=== PATIENT | female | born 1985 | race Caucasian/White ===

== ENCOUNTER 2017-04-19 18:52 | Emergency (ER) | payer MEDICAID ==
[~2017-04-19] VITALS: Ht 152.4 cm; Wt 87.1 kg
--- OUTSIDE RECORDS SUMMARY | 2017-04-19 18:57 | XMS REPORT ---
Author Author Lasha Bee Organization Unknown Address [address] [place], [place] [id number] Phone Care Team Providers Care Slots Manager Name Role Phone Alyssa Bee PP Unavailable Reason for Referral No Reason for Referral was given. History of Present Illness No HPI available. Problems * Normal Routine History And Physical Adult (V70.0); (Active) * Asthma (493.90); (Active) * Gynecologic Services Contraceptive Management (V25.9); (Active) Medication * Advair Diskus 100-50 MCG/DOSE Inhalation Aerosol Powder Breath Activated; INHALE ONE PUFF BY MOUTH TWICE A DAY; Start Date: 07/09/2010; End Date: 1899 (Active) * ProAir HFA 108 (90 Base) MCG/ACT Inhalation Aerosol Solution; INHALE TWO PUFFS EVERY 4 TO 6 HOURS NEEDED; Start Date: 05/13/2011; End Date: 1899 (Active) * Slow Fe 142 (45 Fe) MG Oral Tablet Extended Release; Start Date: 03/31/2013 ( Active) * Plus DHA 7-0.4-100 MG Oral Tablet; Start Date: 08/24/2012; End Date: 03/31/2013 (Complete) Allergies and Adverse Reactions * No Known Drug Allergies (Active) Past Medical History * History of Supervision Of Normal First (V22.0); (Resolved) Procedures Procedure Procedure Date Date Completed Status Obstetrical Surgery 09/09/2010 - Active Obstetrical Surgery 02/15/2013 - Active Immunization * Tdap (Adacel) (Lot #: [id number]) - Administered on: 12/29/2012 Vital Signs Date Description Test Result 31 Mar 2013 11:06 AM recorded by: Griselda Loving Weight 158 lb Body Mass Index Calculated 31.02 Body Surface Area Calculated 1.69 BP Systolic 110 mm[Hg] BP Diastolic 62 mm[Hg] Treatment Plan * PAP SMEAR 9600 03/04/2010 Routine * PAP SMEAR 9600 11/12/2010 Routine * HIV 1,2 ASSAY 3400 08/24/2012 Routine * OBSTETRIC PANEL 2130 08/24/2012 Routine * Urinalysis, Reflex to Microscopic or Culture PRN 8005 08/24/2012 Routine * Urine Culture PRN 8000 08/24/2012 Routine * CHLAMYDIA & GONORRHOEAE DNA PROBES 5610 08/24/2012 Routine * BETA HCG 3500 03/31/2013 Routine Advance Directives * No Advance Directives available. Encounters * Appointment 03/31/2013 * POSTPART , Provider: Tin Gooden, Status: Maximo , Time: 9:45 AM 08/2013 * GYNNEW , Provider: Tin Gooden, Status: Koby , Time: 1:45 PM * YEARLY , Provider: Rohit Colby, Status: Koby , Time: 1:45 PM 2013
--- OUTSIDE RECORDS SUMMARY | 2017-04-19 18:57 | XMS REPORT | Summary of Care ---
Author Author Lasha Bee M.D. Organization Unknown Address Unknown Phone Unavailable Care Team Providers Care Manager Statistical Programming Name Role Phone Alyssa Bee M.D. Unavailable Unavailable Jhonny Arroyo M.D. Unavailable Unavailable No Assigned PCP-Pt Confirmed Unavailable Unavailable Unavailable Unavailable Functional Status Name Dates Details Functional status health issues are not documented Status: Name Dates Details Cognitive status health issues are not documented Status: Problems Name Dates Details Asthma (493.90, J45.909) Status: Active Chronic bilateral low back pain with bilateral sciatica (724.2, M54.42) Status: Active Unprotected sex (V69.2, Z72.51) Status: Active Lumbar paraspinal muscle spasm (724.8, M62.830) Status: Active Chronic low back pain (724.2, M54.5) Status: Active Weight gain, abnormal (783.1, R63.5) Status: Active Encounter for routine gynecological examination (V72.31, Z01.419) Status: Active Amenorrhea (626.0, N91.2) Status: Active Uterine cramping (625.8, N94.89) Status: Active Screen for STD (sexually transmitted disease) (V74.5, Z11.3) Status: Active Abnormal uterine bleeding unrelated to menstrual cycle (626.9, N93.9) Status: Active Medications Name Dates Details Dulera 200-5 MCG/ACT Inhalation Aerosol INHALE 2 PUFFS TWICE DAILY. Quantity: 1 * Start 08-Oct-2016 Active 13 GM Inhaler ProAir RespiClick 108 (90 Base) MCG/ACT Inhalation Aerosol Powder Breath Activated * Refills: 0 * Start 15-Dec-2016 Active ZyrTEC Allergy 10 MG Oral Capsule * Refills: 0 Jhonny Arroyo M.D. * Start 24-Dec-2016 Active Naproxen 500 MG Oral Tablet TAKE 1 TABLET EVERY 12 HOURS DAILY. * Quantity: 60 Refills: 2 Jhonny Arroyo M.D. * Start 24-Dec-2016 Active Baclofen 10 MG Oral Tablet TAKE 1 TABLET 4 TIMES DAILY. * Quantity: 40 Refills: 2 Jhonny Arroyo M.D. * Start 24-Dec-2016 Active Dramamine 50 MG Oral Tablet Chewable * Refills: 0 Lasha Bee M.D. * Start 20-Jan-2017 Active PNV Plus Multivitamin 27-1 MG Oral Tablet take one tablet by mouth every day * Quantity: 30 Refills: 11 Rohit Sands, Lasha Shah * Start 25-Mar-2017 Active Allergies and Adverse Reactions Name Dates Details No Known Drug Allergies (Allergy) Status: Active Past Medical History Name Dates Details History of Possible (V72.40, Z32.00) Status: Resolved History of Supervision of normal first (V22.0, Z34.00) Status: Resolved Procedures Procedure Dates Details History of Obstetrical Surgery Completed: 09-Sep-2010 History of Obstetrical Surgery Completed: 15-Feb-2013 Chlamydia/GC TMA Assay [id number] Ordered: 25-Mar-2017 ULTRASOUND SALINE SONO Ordered: 25-Mar-2017 Immunization Name Dates Details Tdap (Adacel) Lot #: [id number] on: 29-Dec-2012 Family History Name Dates Details Family history of asthma (V17.5, Z82.5) Status: Active Family history of myocardial infarction (V17.3, Z82.49) Status: Active Name Dates Details Family history of myocardial infarction (V17.3, Z82.49) Status: Active Name Dates Details Family history of myocardial infarction (V17.3, Z82.49) Status: Active Family history of cardiac disorder (V17.49, Z82.49) Status: Active Name Dates Details Family history of myocardial infarction (V17.3, Z82.49) Status: Active Social History Name Dates Details Unprotected sex (V69.2, Z72.51) Status: Active Name Dates Details Never smoker Vital Signs Date Test Result Details 25-Mar-2017 11:02 BP Systolic 102 mm[Hg] Status: Comments: Location: ; Position: BP Diastolic 60 mm[Hg] Status: Comments: Location: ; Position: Weight 196 lb Status: Body Mass Index Calculated 37.34 kg/m2 Status: Body Surface Area Calculated 1.87 m2 Status: Results Date Description Value Details Results not documented Plan of Care Name Dates Details Planned Observations Planned Goals not documented Planned Encounters Appointment; Provider: Lasha Bee M.D. On 05-Aug-2017 14:00 Interventions Provided Labs/Procedures/Imaging* Chlamydia/GC TMA Assay [id number]; To be Done: 25 Mar 2017 * ULTRASOUND SALINE SONO; To be Done: 25 Mar 2017 Instructions Name Dates Details Instructions not documented Encounters Appointment; Lasha Bee M.D. Encounter Diagnosis: Problem not documented On 02-Feb-2017 14:00 Appointment; Lasha Bee M.D. Encounter Diagnosis: Problem not documented On 20-Jan-2017 14:15 Appointment; Jovany Washington M.D. Encounter Diagnosis: Problem not documented On 14-Jan-2017 10:30 Appointment; Latha Harvey APRN Encounter Diagnosis: Problem not documented On 07-Jan-2017 15:25 Appointment; Jhonny Arroyo M.D. Encounter Diagnosis: Problem not documented On 24-Dec-2016 13:45 Appointment; Leland Steve D.O. Encounter Diagnosis: Problem not documented On 15-Dec-2016 11:05 Appointment; Bryan Delgado M.D. Encounter Diagnosis: Problem not documented On 15-Dec-2016 09:45 Appointment; Jovany Washington M.D. Encounter Diagnosis: Problem not documented On 10-Dec-2016 11:15 Appointment; Karen Kovacs A.P.R.N. Encounter Diagnosis: Problem not documented On 08-Oct-2016 15:30
--- OUTSIDE RECORDS SUMMARY | 2017-04-19 18:58 | XMS REPORT ---
Author Zhane Tubbs [employer] Address Unknown Phone Unavailable Care Team Providers Care Chief Wheelage Clerk Name Role Phone Zhane Sanders Unavailable Allergies, Adverse Reactions, Alerts Substance Reaction Event Type N.K.D.A. Info Not Available Non Drug Allergy Problems Problem Type Condition Code Onset Dates Condition Status Assessment Encounter for routine gynecological examination Z01.419 Active Problem examination or test, negative result V72.41 Active Problem Presence of subdermal contraceptive device V45.52 Active Problem Insomnia G47.00 Active Problem Exacerbation of asthma J45.901 Active Problem Obesity, morbid, BMI 40.0-49.9 E66.01 Active Problem Encounter for vaccination Z23 Active Problem Unspecified disorder of menstruation and other abnormal bleeding from female genital tract 626.9 Active Problem Severe persistent asthma J45.50 Active Problem Lumbar back pain M54.5 Active Assessment Obesity, morbid, BMI 40.0-49.9 E66.01 Active Assessment Screening for HPV (human papillomavirus) Z11.51 Active Assessment Papanicolaou smear for cervical cancer screening Z12.4 Active Medications Medication Code System Code Instructions Start Date End Date Status Dosage Dulera [facility] [address]-03 100-5 MCG/ACT Inhalation Twice a day 2 puffs Zantac 75 [facility] [address]-43 75 MG Orally not defined Sudafed 12 Hour [facility] [address]-13 120 MG Orally every 12 hrs 1 tablet as needed Cefdinir [facility] [address]-19 300 MG Orally every 12 hrs Oct 13, 2016Oct 1 capsule ProAir HFA [facility] [address]-55 108 (90 Base) MCG/ACT Inhalation every 4 hrs 2 puffs as needed Procedures Procedure Coding System Code Date EST PREV AGE 18-39 CPT-4 59289 Oct 22, 2016 Vital Signs Date/Time: Oct 22, 2016 BMI 47.69 Index Weight 173.0 lbs Height 50.5 in Blood Pressure Diastolic 70 mm Hg Blood Pressure Systolic 110 mm Hg Cardiac Monitoring Heart Rate 88 /min Temperature 97.7 F Respiratory Rate 18 /min Results No Known Results Summary Purpose eClinicalWorks Submission
--- OUTSIDE RECORDS SUMMARY | 2017-04-19 18:58 | XMS REPORT ---
Author Margie Mattson Organization [employer] Address Unknown Phone Unavailable Care Team Providers Care Medical Assisting Instructor Name Role Phone Margie Baird CP Unavailable Allergies No Known Allergies Problems No Known Problems Medications No Known Medications Results No Known Results Summary Purpose eClinicalWorks Submission
--- OUTSIDE RECORDS SUMMARY | 2017-04-19 18:58 | XMS REPORT | Summary of Care ---
Author Author Lasha Bee M.D. Organization Unknown Address Unknown Phone Unavailable Care Team Providers Care Surgical Services Asst Name Role Phone Alyssa Bee M.D. Unavailable Unavailable Jhonny Arroyo M.D. Unavailable Unavailable No Assigned PCP-Pt Confirmed Unavailable Unavailable Unavailable Unavailable Functional Status Name Dates Details Functional status health issues are not documented Status: Name Dates Details Cognitive status health issues are not documented Status: Problems Name Dates Details Encounter for routine gynecological examination (V72.31, Z01.419) Status: Active Chronic low back pain (724.2, M54.5) Status: Active Amenorrhea (626.0, N91.2) Status: Active Lumbar paraspinal muscle spasm (724.8, M62.830) Status: Active Unprotected sex (V69.2, Z72.51) Status: Active Weight gain, abnormal (783.1, R63.5) Status: Active Asthma (493.90, J45.909) Status: Active Chronic bilateral low back pain with bilateral sciatica (724.2, M54.42) Status: Active Medications Name Dates Details Dulera [...] TIMES DAILY. * Quantity: 40 Refills: 2 Cruz Sands, Jhonny * Start 24-Dec-2016 Active Dramamine 50 MG Oral Tablet Chewable * Refills: 0 Lasha Bee M.D. * Start 20-Jan-2017 Active Allergies and Adverse Reactions Name Dates Details No Known Drug Allergies (Allergy) Status: Active Past Medical History Name Dates Details History of Possible (V72.40, Z32.00) Status: Resolved History of Supervision of normal first (V22.0, Z34.00) Status: Resolved Procedures Procedure Dates Details History of Obstetrical Surgery Completed: 09-Sep-2010 History of Obstetrical Surgery Completed: 15-Feb-2013 Procedures not documented Immunization Name Dates Details Tdap (Adacel) Lot #: [id number] on: 29-Dec-2012 Family History Name Dates Details Family history of asthma (V17.5, Z82.5) Status: Active Family history of myocardial infarction (V17.3, Z82.49) Status: Active Name Dates Details Family history of myocardial infarction (V17.3, Z82.49) Status: Active Name Dates Details Family history of cardiac disorder (V17.49, Z82.49) Status: Active Family history of myocardial infarction (V17.3, Z82.49) Status: Active Name Dates Details Family history of myocardial infarction (V17.3, Z82.49) Status: Active Social History Name Dates Details Unprotected sex (V69.2, Z72.51) Status: Active Name Dates Details Never smoker Vital Signs Date Test Result Details 20-Jan-2017 14:19 BP Systolic 102 mm[Hg] Status: Comments: Location: ; Position: BP Diastolic 74 mm[Hg] Status: Comments: Location: ; Position: Height 60.75 in Status: Weight 188 lb Status: Body Mass Index Calculated 35.82 kg/m2 Status: Body Surface Area Calculated 1.83 m2 Status: 07-Jan-2017 15:29 BP Systolic 118 mm[Hg] Status: Comments: Location: ; Position: BP Diastolic 78 mm[Hg] Status: Comments: Location: ; Position: Temperature 98.2 f Status: Heart Rate 87 /min Status: Physical Findings 98 Status: Comments: O2 Saturation Results Date Description Value Details 20-Jan-2017 16:17 THYROID STIM. HORMONE 3602 THYROID STIM. HORMONE 1.556 uIU/mL Range: 0.550-4.780 Comments: No established reference ranges for infants and children <2 years of age----- 26-Jan-2017 17:30 SERUM TEST 8020 SERUM TEST Negative Range: Negative Comments: Internal Control: Acceptable----- Plan of Care Name Dates Details Planned Observations Planned Goals not documented Planned Encounters Appointment; Provider: Rafael Coe On 17-Feb-2017 16:00 Appointment; Provider: Jhonny Arroyo M.D. On 10-Feb-2017 13:30 Instructions Name Dates Details Instructions not documented [...]
--- OUTSIDE RECORDS SUMMARY | 2017-04-19 18:58 | XMS REPORT ---
Author Author Leland Baird Organization [facility] Address [address] [place], [place] [address] Care Team Providers Care Wet Machine Cutter Name Role Phone OliManuelLeland Unavailable [phone] PROBLEMS Type Condition ICD9-CM Code SUO13-AR Code Onset Dates Condition Status SNOMED Code Problem Presence of subdermal contraceptive device V45.52 Active 469123111 Problem Unspecified disorder of menstruation and other abnormal bleeding from female genital tract 626.9 Active 220364721 Problem examination or test, negative result V72.41 Active 121561916 Assessment Amenorrhea N91.2 Oct, Active 84545382 Problem Obesity, morbid, BMI 40.0-49.9 E66.01 Active 652814917 Problem Insomnia G47.00 Active 193065558 Problem Lumbar back pain M54.5 Active 675269415 Problem Encounter for vaccination Z23 Active 697246349 Problem Exacerbation of asthma J45.901 Active 098207110 Problem Severe persistent asthma J45.50 Active 838501587 ALLERGIES Unknown Allergies SOCIAL HISTORY No smoking Hx information available PLAN OF CARE VITAL SIGNS MEDICATIONS Medication Instructions Dosage Frequency Start Date End Date Duration Status Sudafed 12 Hour 120 MG Orally every 12 hrs 1 tablet as needed 12h Active Zantac 75 75 MG Active ProAir HFA 108 (90 Base) MCG/ACT Inhalation every 4 hrs 2 puffs as needed 4h Active Dulera 100-5 MCG/ACT Inhalation Twice a day 2 puffs 12h Active RESULTS Name Result Date Reference Range Screen, Serum 2016-11-07 Screen, Serum Negative Venipuncture 2016-11-07 PROCEDURES Procedure Date Ordered Related Diagnosis Body Site CHORIONIC GONADOTROPIN ASSAY.AMS Nov 07, 2016 ROUTINE VENIPUNCTURE Nov 07, 2016 IMMUNIZATIONS No Known Immunizations
--- OUTSIDE RECORDS SUMMARY | 2017-04-19 18:58 | XMS REPORT | Summary of Care ---
Author Author Jhonny Arroyo M.D. Organization Unknown Address [address] [place] [address] Phone Unavailable Care Team Providers Care Land Examiner Name Role Phone Jhonny Arroyo M.D. Unavailable Unavailable Bryan Delgado Unavailable Unavailable Unavailable Unavailable Functional Status Name Dates Details Functional status health issues are not documented Status: Name Dates Details Cognitive status health issues are not documented Status: Problems Name Dates Details Contraception management (V25.9, Z30.9) Status: Active Asthma (493.90, J45.909) Status: Active Chronic bilateral low back pain with bilateral sciatica (724.2, M54.42) Status: Active Unprotected sex (V69.2, Z72.51) Status: Active Possible (V72.40, Z32.00) Status: Active Lumbar paraspinal muscle spasm (724.8, M62.830) Status: Active Chronic low back pain (724.2, M54.5) Status: Active Medications Name Dates Details Dulera 200-5 MCG/ACT Inhalation Aerosol INHALE 2 PUFFS TWICE DAILY. Quantity: 1 * Start 08-Oct-2016 Active 13 GM Inhaler ProAir RespiClick 108 (90 Base) MCG/ACT Inhalation Aerosol Powder Breath Activated * Refills: 0 * Start 15-Dec-2016 Active Soma 350 MG Oral Tablet * Refills: 0 * Start 24-Dec-2016 Active TraMADol HCl - 50 MG Oral Tablet * Refills: 0 * Start 24-Dec-2016 Active ZyrTEC Allergy 10 MG Oral Capsule [...] Jhonny Arroyo M.D. * Start 24-Dec-2016 Active Allergies and Adverse Reactions Name Dates Details No Known Drug Allergies (Allergy) Status: Active Past Medical History Name Dates Details Contraception management (V25.9, Z30.9) Status: Active History of Supervision of normal first (V22.0, Z34.00) Status: Resolved Procedures Procedure Dates Details History of Obstetrical Surgery Completed: 09-Sep-2010 History of Obstetrical Surgery Completed: 15-Feb-2013 Procedures not documented Immunization Name Dates Details Tdap (Adacel) Lot #: [id number] on: 29-Dec-2012 Family History Name Dates Details [...] smoker Vital Signs Date Test Result Details 24-Dec-2016 14:06 BP Systolic 130 mm[Hg] Status: Comments: Location: ; Position: BP Diastolic 88 mm[Hg] Status: Comments: Location: ; Position: Heart Rate 94 /min Status: Comments: Location: ; Weight 187 lb Status: Body Mass Index Calculated 34.76 kg/m2 Status: Body Surface Area Calculated 1.85 m2 Status: 15-Dec-2016 11:13 BP Systolic 143 mm[Hg] Status: Comments: Location: LUE; Position: Sitting BP Diastolic 92 mm[Hg] Status: Comments: Location: LUE; Position: Sitting Temperature 98.4 f Status: Comments: Method: Heart Rate 84 /min Status: Comments: Location: ; Physical Findings 16 Status: Comments: Respiration Physical Findings 97 Status: Comments: O2 Saturation 15-Dec-2016 09:54 BP Systolic 122 mm[Hg] Status: Comments: Location: ; Position: BP Diastolic 86 mm[Hg] Status: Comments: Location: ; Position: Heart Rate 84 /min Status: Comments: Location: ; Height 61.5 in Status: Weight 185 lb Status: Body Mass Index Calculated 34.39 kg/m2 Status: Body Surface Area Calculated 1.84 m2 Status: Results Date Description Value Details 15-Dec-2016 13:15 SERUM TEST 8020 SERUM TEST Negative Range: Negative Comments: Internal Control: Acceptable----- 14:11 XRay SPINE-LUMBAR Comments: Exam Date: 12/15/2016 13:29Dictation Date : 12/15/2016 14:11 X SPINE LUMBAR W/ FLEX & EXT Plan of Care Name Dates Details Planned Observations Planned Goals not documented Planned Encounters Appointment; Provider: Jhonny Arroyo M.D. On 10-Feb-2017 13:30 Appointment; Provider: Sixto Pittman D.P.T. On 31-Dec-2016 13:30 Interventions Provided Medication Changes* Baclofen 10 MG Oral Tablet - Start * Naproxen 500 MG Oral Tablet - Start Instructions Name Dates Details Instructions not documented Encounters Appointment; Leland Steve D.O. Encounter Diagnosis: Problem not documented On 15-Dec-2016 11:05 Appointment; Bryan Delgado M.D. Encounter Diagnosis: Problem not documented On 15-Dec-2016 09:45 Appointment; Jovany Washington M.D. Encounter Diagnosis: Problem not documented On 10-Dec-2016 11:15 Appointment; Karen Kovacs A.P.R.N. Encounter Diagnosis: Problem not documented On 08-Oct-2016 15:30
--- OUTSIDE RECORDS SUMMARY | 2017-04-19 18:58 | XMS REPORT ---
Author Author Margie Baird Organization [employer] Address Unknown Phone Unavailable Care Team Providers Care Manager Beauty Name Role Phone Margie Baird CP Unavailable Allergies No Known Allergies Problems No Known Problems Medications No Known Medications Results No Known Results Summary Purpose eClinicalWorks Submission
--- OUTSIDE RECORDS SUMMARY | 2017-04-19 18:58 | XMS REPORT ---
Author Leland Mattson [facility] [employer] Address Unknown Phone Unavailable Care Team Providers Care Department Supervisor Name Role Phone Leland Baird CP Unavailable Allergies No Known Allergies Problems Problem Type Condition Code Onset Dates Condition Status Problem examination or test, negative result V72.41 Active Problem Presence of subdermal contraceptive device V45.52 Active Problem Unspecified disorder of menstruation and other abnormal bleeding from female genital tract 626.9 Active Medications No Known Medications Results No Known Results Summary Purpose eClinicalWorks Submission
--- OUTSIDE RECORDS SUMMARY | 2017-04-19 18:58 | XMS REPORT ---
Author Author Zhane Sanders [facility] [employer] Address Unknown Phone Unavailable Care Team Providers Care Tech Ed/Woodshop Teacher Name Role Phone Zhane Sanders CP Unavailable Allergies No Known Allergies Problems Problem Type Condition Code Onset Dates Condition Status Assessment Papanicolaou smear for cervical cancer screening Z12.4 Active Problem examination or test, negative result [...] Active Problem Lumbar back pain M54.5 Active Medications Medication Code System Code Instructions Start Date End Date Status Dosage Cefdinir [facility] [address]-25 300 MG Orally every 12 hrs Oct 13, 2016Oct 1 capsule Zantac 75 [facility] [address]-52 75 MG Orally not defined Sudafed 12 Hour [facility] [address]-77 120 MG Orally every 12 hrs 1 tablet as needed Dulera [facility] [address]-69 100-5 MCG/ACT Inhalation Twice a day 2 puffs ProAir HFA [facility] [address]-16 108 (90 Base) MCG/ACT Inhalation every 4 hrs 2 puffs as needed Results Name Result Date Reference Range Unit Abnormality Flag PAP (LBP) w/ Reflex High Risk HPV if results ASCUS ----PAP (LBP) w/ Reflex High Risk HPV if results ASCUS Patient: MAYFIELD HAYLEE JENKINS : [id number] Summary Purpose eClinicalWorks Submission
--- OUTSIDE RECORDS SUMMARY | 2017-04-19 18:58 | XMS REPORT | Summary of Care ---
Author Leland Briggs D.O. Organization Unknown Address [address] [place], [place] [address] Phone Unavailable Care Team Providers Care Metal Sprayer Protective Coating Name Role Phone Orville Steve D.O. Unavailable Unavailable Bryan Delgado Unavailable Unavailable Unavailable [...] paraspinal muscle spasm (724.8, M62.830) Status: Active Medications Name Dates Details Dulera 200-5 MCG/ACT Inhalation Aerosol INHALE 2 PUFFS TWICE DAILY. Quantity: 1 * Start 08-Oct-2016 Active 13 GM Inhaler ProAir RespiClick 108 (90 Base) MCG/ACT Inhalation Aerosol Powder Breath Activated * Refills: 0 * Start 15-Dec-2016 Active TraMADol HCl - 50 MG Oral Tablet TAKE 1 TABLET Every 4 hours prn back pain * Quantity: 50 Refills: 0 Leland Steve D.O. Start 15-Dec-2016 End 24-Dec-2016 Active Cyclobenzaprine HCl - 5 MG Oral Tablet TAKE 1 TABLET 3 times daily PRN low back pain and muscle * Quantity: 30 Refills: 0 Leland Steve D.O. Start 15-Dec-2016 End 25-Dec-2016 Active Allergies and Adverse Reactions Name Dates Details No Known Drug Allergies (Allergy) Status: Active Past Medical History Name Dates Details Contraception management (V25.9, Z30.9) Status: Active History of Supervision of normal first (V22.0, Z34.00) Status: Resolved Procedures Procedure Dates Details History of Obstetrical Surgery Completed: 09-Sep-2010 History of Obstetrical Surgery Completed: 15-Feb-2013 MRI LUMBAR SPINE Ordered: 15-Dec-2016 Immunization Name Dates Details Tdap (Adacel) Lot #: [id number] on: 29-Dec-2012 Social History Name Dates Details Unprotected sex (V69.2, Z72.51) Status: Active Name Dates Details Never smoker Vital Signs Date Test Result Details 15-Dec-2016 11:13 BP Systolic 143 mm[Hg] Status: Comments: Location: ; Position: BP Diastolic 92 mm[Hg] Status: Comments: Location: ; Position: Temperature 98.4 f Status: Heart Rate 84 /min Status: Comments: Location: ; Physical Findings 16 Status: Comments: Respiration Physical Findings 97 Status: Comments: O2 Saturation 15-Dec-2016 09:54 BP Systolic 122 mm[Hg] Status: Comments: Location: LUE; Position: Sitting BP Diastolic 86 mm[Hg] Status: Comments: Location: LUE; Position: Sitting Heart Rate 84 /min Status: Comments: Location: [...] Goals not documented Planned Encounters Appointment; Provider: Karen Kovacs A.P.R.N. On 20-Jan-2017 15:00 Interventions Provided Medication Changes* Cyclobenzaprine HCl - 5 MG Oral Tablet - Start * TraMADol HCl - 50 MG Oral Tablet - Start Labs/Procedures/Imaging* SERUM TEST 8020; Done: Dec 15 2016 12:51PM * XRay SPINE-LUMBAR; Done: Dec 15 2016 2:11PM Instructions Name Dates Details Instructions not documented Encounters Appointment; Byran Delgado M.D. Encounter Diagnosis: Problem not documented On 15-Dec-2016 09:45 Appointment; Jovany Washington M.D. Encounter Diagnosis: Problem not documented On 10-Dec-2016 11:15 Appointment; Karen Kovacs A.P.R.N. Encounter Diagnosis: Problem not documented On 08-Oct-2016 15:30
--- OUTSIDE RECORDS SUMMARY | 2017-04-19 18:58 | XMS REPORT ---
Author Margie Mattson Organization [employer] Address Unknown Phone Unavailable Care Team Providers Care Medical Technologist Prn Name Role Phone Margie Baird CP Unavailable Allergies No Known Allergies Problems No Known Problems Medications No Known Medications Results No Known Results Summary Purpose eClinicalWorks Submission
--- OUTSIDE RECORDS SUMMARY | 2017-04-19 18:58 | XMS REPORT ---
Author Author Leland Baird [facility] Address [address] [place], [place] [address] Care Team Providers Care Java Web Application Developer Name Role Phone Leland Baird Unavailable [phone] PROBLEMS Type Condition ICD9-CM Code [id number] Code Onset Dates Condition Status SNOMED Code Problem Presence of subdermal contraceptive device V45.52 Active 452696661 Problem Unspecified disorder of menstruation and other abnormal bleeding from female genital tract 626.9 Active 665879041 Problem examination or test, negative result V72.41 Active 287876193 Problem Obesity, morbid, BMI 40.0-49.9 E66.01 Active 063644899 Problem Insomnia G47.00 Active 650028420 Problem Lumbar back pain M54.5 Active 374103178 Problem Encounter for vaccination Z23 Active 078237677 Problem Exacerbation of asthma J45.901 Active 496274440 Problem Severe persistent asthma J45.50 Active 022507867 ALLERGIES Unknown Allergies SOCIAL HISTORY No smoking Hx information available PLAN OF CARE VITAL SIGNS MEDICATIONS Unknown Medications RESULTS No Results PROCEDURES No Known procedures IMMUNIZATIONS No Known Immunizations
--- OUTSIDE RECORDS SUMMARY | 2017-04-19 18:58 | XMS REPORT | Summary of Care ---
Author Author Lasha Bee M.D. Organization Unknown Address Unknown Phone Unavailable Care Team Providers Care Private Investigator Name Role Phone Alyssa Bee M.D. Unavailable [...] routine gynecological examination (V72.31, Z01.419) Status: Active Medications Name Dates Details Dulera [...] 09-Sep-2010 History of Obstetrical Surgery Completed: 15-Feb-2013 THYROID STIM. HORMONE 3602 Ordered: 20-Jan-2017 Immunization Name Dates Details Tdap (Adacel) Lot #: [id number] on: 29-Dec-2012 Family History Name Dates Details [...] Location: ; Position: Temperature 98.2 f Status: Comments: Method: Heart Rate 87 /min Status: Comments: Location: ; Physical Findings 98 Status: Comments: O2 Saturation 24-Dec-2016 14:06 BP Systolic 130 mm[Hg] Status: Comments: Location: ; Position: BP Diastolic 88 mm[Hg] Status: Comments: Location: ; Position: Heart Rate 94 /min Status: Weight 187 lb Status: Body Mass Index Calculated 34.76 kg/m2 Status: Body Surface Area Calculated 1.85 m2 Status: Results Date Description Value Details Results not documented Plan of Care Name Dates Details Planned Observations Planned Goals not documented Planned Encounters Appointment; Provider: Rafael Coe On 17-Feb-2017 16:00 Appointment; Provider: Jhonny Arroyo M.D. On 10-Feb-2017 13:30 Interventions Provided Labs/Procedures/Imaging* THYROID STIM. HORMONE 3602; To be Done: 20 Jan 2017 Instructions Name Dates Details Instructions not documented Encounters Appointment; Jovany Washington M.D. Encounter Diagnosis: Problem [...]
--- OUTSIDE RECORDS SUMMARY | 2017-04-19 18:58 | XMS REPORT ---
Author Author Karen Ballard Organization eClinicalWorks Address Unknown Phone Unavailable Care Team Providers Care Drum Tester Name Role Phone Karen Ballard CP Unavailable Allergies No Known Allergies Problems No Known Problems Medications No Known Medications Results No Known Results Summary Purpose eClinicalWorks Submission
--- OUTSIDE RECORDS SUMMARY | 2017-04-19 18:58 | XMS REPORT ---
Author Author Leland Baird [facility] eClinicalWorks Address Unknown Phone Unavailable Care Team Providers Care Deputy Brand Inspector Name Role Phone Leland Baird CP Unavailable Allergies No Known Allergies Problems Problem Type Condition Code Onset Dates Condition Status Problem Presence of subdermal contraceptive device V45.52 Active Problem Exacerbation of asthma J45.901 Active Problem Severe persistent asthma J45.50 Active Problem Insomnia G47.00 Active Problem Unspecified disorder of menstruation and other abnormal bleeding from female genital tract 626.9 Active Problem examination or test, negative result V72.41 Active Problem Lumbar back pain M54.5 Active Problem Encounter for vaccination Z23 Active Medications Medication Code System Code Instructions Start Date End Date Status Dosage Cefdinir [facility] [address]-57 300 MG Orally every 12 hrs Oct 13, 2016Oct 1 capsule Results No Known Results Summary Purpose eClinicalWorks Submission
--- OUTSIDE RECORDS SUMMARY | 2017-04-19 18:58 | XMS REPORT ---
Author Author Karen Ballard Organization [employer] Address Unknown Phone Unavailable Care Team Providers Care Grapple Yarder Operator Name Role Phone Karen Ballard CP Unavailable Allergies No Known Allergies Problems No Known Problems Medications No Known Medications Results No Known Results Summary Purpose eClinicalWorks Submission
--- OUTSIDE RECORDS SUMMARY | 2017-04-19 18:58 | XMS REPORT ---
Author Author Leland Baird [facility] eClinicalWorks Address Unknown Phone Unavailable Care Team Providers Care Ep Technologist Name Role Phone Leland Baird CP Unavailable Allergies No Known Allergies Problems Problem Type Condition Code Onset Dates Condition Status Problem Lumbar back pain M54.5 Active Problem Encounter for vaccination Z23 Active Problem Severe persistent asthma J45.50 Active Problem Presence of subdermal contraceptive device V45.52 Active Problem Unspecified disorder of menstruation and other abnormal bleeding from female genital tract 626.9 Active Problem examination or test, negative result V72.41 Active Medications Medication Code System Code Instructions Start Date End Date Status Dosage Methocarbamol [facility] [address]-15 500 MG Orally Four times a day Nov 13, 2015 Nov 23, 2015 1 tablet as needed Results No Known Results Summary Purpose eClinicalWorks Submission
--- OUTSIDE RECORDS SUMMARY | 2017-04-19 18:58 | XMS REPORT | Summary of Care ---
Author Author Lasha Bee M.D. Organization Unknown Address Unknown Phone Unavailable Care Team Providers Care Media Relations Associate Name Role Phone Alyssa Bee M.D. Unavailable [...] Status: Active Amenorrhea (626.0, N91.2) Status: Active Medications Name Dates Details Dulera [...] HOURS DAILY. * Quantity: 60 Refills: 2 Cruz Sands, Jhonny * Start 24-Dec-2016 Active Baclofen 10 MG [...] 09-Sep-2010 History of Obstetrical Surgery Completed: 15-Feb-2013 SERUM TEST 8020 Ordered: 26-Jan-2017 Immunization Name Dates Details Tdap (Adacel) Lot #: [id number] on: 29-Dec-2012 Family History Name Dates Details [...] infants and children <2 years of age----- Plan of Care Name Dates Details Planned Observations Planned Goals not documented Planned Encounters Appointment; Provider: Rafael Coe On 17-Feb-2017 16:00 Appointment; Provider: Jhonny Arroyo M.D. On 10-Feb-2017 13:30 Interventions Provided Labs/Procedures/Imaging* SERUM TEST 8020; To be Done: 26 Jan 2017 Instructions Name Dates Details Instructions [...]
--- OUTSIDE RECORDS SUMMARY | 2017-04-19 18:58 | XMS REPORT | Summary of Care ---
Author Author Karen Kovacs APRN Organization Unknown Address [address] [place], [place] [address] Phone Unavailable Care Team Providers Care Hiv Prevention Specialist Name Role Phone Fermín KUMARINKaren Unavailable Unavailable Yordan Castle M.D. Unavailable Unavailable No Assigned PCP-Pt Confirmed Unavailable Unavailable Unavailable Unavailable Functional Status Name Dates Details Functional status health issues are not documented Status: Name Dates Details Cognitive status health issues are not documented Status: Problems Name Dates Details Control Method - Subdermal Contraceptive Implant (V45.52) Status: Auto Complete Contraception management (V25.9, Z30.9) Status: Active Asthma (493.90, J45.909) Status: Active Medications Name Dates Details Nexplanon 68 MG Subcutaneous Implant USE DIRECTED. Quantity: 1 Tin Sands, Berkley A * Start 05-Apr-2013 Active Dulera 200-5 MCG/ACT Inhalation Aerosol INHALE 2 PUFFS TWICE DAILY. * Quantity: 1 Refills: 6 * Start 08-Oct-2016 Active 13 GM Inhaler Ventolin HFA 108 (90 Base) MCG/ACT Inhalation Aerosol Solution inhale 1 to 2 puffs every 4 to 6 hours as needed. * Quantity: 1 Refills: 11 Karen Kovacs APRN * Start 08-Oct-2016 Active 18 GM Inhaler Allergies and Adverse Reactions Name Dates Details No Known Drug Allergies (Allergy) Status: Active Past Medical History Name Dates Details Contraception management (V25.9, Z30.9) Status: Active History of Supervision of normal first (V22.0, Z34.00) Status: Resolved Procedures Procedure Dates Details History of Obstetrical Surgery Completed: 09-Sep-2010 History of Obstetrical Surgery Completed: 15-Feb-2013 Procedures not documented Immunization Name Dates Details Tdap (Adacel) Lot #: [id number] on: 29-Dec-2012 Social History Name Dates Details Control Method - Subdermal Contraceptive Implant (V45.52) Comments: Nexplanon inserted in left arm, [id number] Status: Auto Complete as of 04-Apr-2016 Name Dates Details Unknown if ever smoked Vital Signs Date Test Result Details 08-Oct-2016 15:29 BP Systolic 104 mm[Hg] Status: Comments: Location: ; Position: BP Diastolic 84 mm[Hg] Status: Comments: Location: ; Position: Heart Rate 95 /min Status: Comments: Location: ; Physical Findings 20 Status: Comments: Respiration Height 60 in Status: Weight 168 lb Status: Physical Findings 93 Status: Comments: O2 Saturation Body Mass Index Calculated 32.81 kg/m2 Status: Body Surface Area Calculated 1.73 m2 Status: Results Date Description Value Details Results not documented Plan of Care Name Dates Details Planned Observations Planned Goals not documented Planned Encounters Appointment; Provider: Karen Kovacs A.P.R.N. On 20-Jan-2017 15:00 Interventions Provided Medication Changes* Ventolin HFA 108 (90 Base) MCG/ACT Inhalation Aerosol Solution - Start Instructions Name Dates Details Instructions not documented Encounters Appointment; Kaern Kovacs A.P.R.N. Encounter Diagnosis: Problem not documented On 08-Oct-2016 15:30
--- OUTSIDE RECORDS SUMMARY | 2017-04-19 18:58 | XMS REPORT ---
Author Zhane Tubbs eClinicalWorks Address Unknown Phone Unavailable Care Team Providers Care Systems Admin Name Role Phone Zhane Sanders Unavailable Allergies, Adverse Reactions, Alerts Substance Reaction Event Type N.K.D.A. Info Not Available Non Drug Allergy Problems Problem Type Condition Code Onset Dates Condition Status Problem Presence of subdermal contraceptive device V45.52 Active Assessment Contraceptive surveillance Z30.40 Active Problem Exacerbation of asthma J45.901 Active [...] Start Date End Date Status Dosage Dulera [facility] [address]-78 100-5 MCG/ACT Inhalation Twice a day 2 puffs Augmentin [facility] [address]-46 875-125 MG Orally every 12 hrs 1 tablet Bactrim DS [facility] [address]-36 800-160 MG Orally Twice a day 1 tablet ProAir HFA [facility] [address]-91 108 (90 Base) MCG/ACT Inhalation every 4 hrs 2 puffs as needed Zantac 75 [facility] [address]-59 75 MG Orally not defined Trazodone HCl [facility] [address]-47 50 MG Orally at bedtime Oct 09, 2016 1-2 tablets as needed Sudafed 12 Hour [facility] [address]-36 120 MG Orally every 12 hrs 1 tablet as needed Procedures Procedure Coding System Code Date OFFICE VISIT EST PATIENT LEVEL 2 CPT-4 92058 Oct 13, 2016 REMOVE NEXPLANON CPT-4 56661 Oct 13, 2016 Vital Signs Date/Time: Oct 13, 2016 BMI 47.41 Index Weight 172.0 lbs Height 50.5 in Blood Pressure Diastolic 76 mm Hg Blood Pressure Systolic 127 mm Hg Cardiac Monitoring Heart Rate 100 /min Temperature 97.2 F Oximetry 92 % Respiratory Rate 18 /min Results Name Result Date Reference Range Unit Abnormality Flag SURG-REMOVE NEXPLANON Summary Purpose eClinicalWorks Submission
--- OUTSIDE RECORDS SUMMARY | 2017-04-19 18:58 | XMS REPORT ---
Author Leland Mattson [facility] eClinicalWorks Address Unknown Phone Unavailable Care Team Providers Care Oral Hygienist Name Role Phone Leland Baird Unavailable Allergies, Adverse Reactions, Alerts Substance Reaction Event Type N.K.D.A. Info Not Available Non Drug Allergy Problems Problem Type Condition Code Onset Dates Condition Status Assessment Right otitis externa H60.91 Active Assessment Exacerbation of asthma J45.901 Active Assessment Right otitis media with effusion H65.91 Active Assessment Amenorrhea N91.2 Active Problem Severe persistent asthma J45.50 Active Problem Lumbar back pain M54.5 Active Problem Exacerbation of asthma J45.901 Active Problem examination or test, negative result V72.41 Active Problem Presence of subdermal contraceptive device V45.52 Active Problem Encounter for vaccination Z23 Active Problem Unspecified disorder of menstruation and other abnormal bleeding from female genital tract 626.9 Active Medications Medication Code System Code Instructions Start Date End Date Status Dosage Zyrtec Allergy [facility] [address]-94 10 MG Orally Once a day 1 tablet as needed Bactrim DS [facility] [address]-23 800-160 MG Orally Twice a day 1 tablet Augmentin [facility] [address]-85 875-125 MG Orally every 12 hrs 1 tablet ProAir HFA [facility] [address]-81 108 (90 Base) MCG/ACT Inhalation every 4 hrs 2 puffs as needed Zantac 75 [facility] [address]-70 75 MG Orally not defined Sudafed 12 Hour [facility] [address]-16 120 MG Orally every 12 hrs 1 tablet as needed Procedures Procedure Coding System Code Date ALBUTEROL NON-COMP UNIT CPT-4 J7613 Sep 23, 2016 CHORIONIC GONADOTROPIN ASSAY CPT-4 62755 Sep 23, 2016 AIRWAY INHALATION TREATMENT CPT-4 25787 Sep 23, 2016 OFFICE VISIT EST PATIENT LEVEL 3 CPT-4 65328 Sep 23, 2016 ROUTINE VENIPUNCTURE CPT-4 41217 Sep 23, 2016 Vital Signs Date/Time: Sep 23, 2016 BMI 47.03 Index Weight 170.6 lbs Height 50.5 in Blood Pressure Diastolic 80 mm Hg Blood Pressure Systolic 120 mm Hg Cardiac Monitoring Heart Rate 65 /min Temperature 98.1 F Oximetry 91 % Respiratory Rate 18 /min Results Name Result Date Reference Range Unit Abnormality Flag Screen, Serum ---- Screen, Serum Negative [id number] Venipuncture TX-Nebulizer w/ Albuterol 0.083% 2.5mg/3mL Summary Purpose eClinicalWorks Submission
--- OUTSIDE RECORDS SUMMARY | 2017-04-19 18:58 | XMS REPORT ---
Author Author Leland Baird [facility] eClinicalWorks Address Unknown Phone Unavailable Care Team Providers Care Scientist Engineer Name Role Phone Leland Baird CP Unavailable Allergies No Known Allergies Problems Problem Type Condition Code Onset Dates Condition Status Problem Severe persistent asthma J45.50 Active Problem [...]
--- OUTSIDE RECORDS SUMMARY | 2017-04-19 18:58 | XMS REPORT | Summary of Care ---
Author Kirill Blackmon M.D. Organization Unknown Address Unknown Phone Unavailable Care Team Providers Care Test Engineering Technician Name Role Phone Orville Ashby M.D. Unavailable Unavailable Jhonny Arroyo M.D. Unavailable Unavailable No Assigned PCP-Pt Confirmed Unavailable Unavailable Unavailable Unavailable Functional Status Name Dates Details Functional status health issues are not documented Status: Name Dates Details Cognitive status health issues are not documented Status: Problems Name Dates Details Chronic bilateral low back pain with bilateral sciatica (724.2, M54.42) Status: Active Unprotected sex (V69.2, Z72.51) Status: Active Weight gain, abnormal (783.1, R63.5) Status: Active Encounter for routine gynecological examination (V72.31, Z01.419) Status: Active Uterine cramping (625.8, N94.89) Status: Active Screen for STD (sexually transmitted disease) (V74.5, Z11.3) Status: Active Asthma (493.90, J45.909) Status: Active Lumbar paraspinal muscle spasm (724.8, M62.830) Status: Active Chronic low back pain (724.2, M54.5) Status: Active Amenorrhea (626.0, N91.2) Status: Active Abnormal uterine bleeding unrelated to menstrual cycle (626.9, N93.9) Status: Active Acute sinusitis (461.9, J01.90) Status: Active Medications Name Dates Details ProAir RespiClick 108 (90 Base) MCG/ACT Inhalation Aerosol Powder Breath Activated * Start 15-Dec-2016 Active ZyrTEC Allergy 10 MG Oral Capsule * Refills: 0 Jhonny Arroyo M.D. * Start 24-Dec-2016 Active Amoxicillin 500 MG Oral Capsule TAKE 1 CAPSULE 3 TIMES DAILY UNTIL GONE. * Quantity: 30 Refills: 0 Kirill Ashby M.D. * Start 10-Apr-2017 End 20-Apr-2017 Active PredniSONE 10 MG Oral Tablet TAKE 4 TABLETS DAILY FOR 2 DAYS,3 TABLETS DAILY FOR 2 DAYS, 2 TABLETS DAILY FOR 2 DAYS AND 1 TABLET DAILY FOR 2 DAYS, THEN STOP. * Quantity: 20 Refills: 0 Kirill Ashby M.D. Start 10-Apr-2017 Active Allergies and Adverse Reactions Name Dates Details No Known Drug Allergies (Allergy) Status: Active Past Medical History Name Dates Details Abnormal uterine bleeding unrelated to menstrual cycle (626.9, N93.9) Status: Active Amenorrhea (626.0, N91.2) Status: Active Asthma (493.90, J45.909) Status: Active Chronic low back pain (724.2, M54.5) Status: Active Lumbar paraspinal muscle spasm (724.8, M62.830) Status: Active History of Possible (V72.40, Z32.00) Status: Resolved History of Supervision of normal first (V22.0, Z34.00) Status: Resolved Procedures Procedure Dates Details History of Obstetrical Surgery Completed: 09-Sep-2010 History of Obstetrical Surgery Completed: 15-Feb-2013 ULTRASOUND SALINE SONO Ordered: 25-Mar-2017 Immunization Name Dates Details Tdap (Adacel) Lot #: [id number] on: 29-Dec-2012 Family History Name Dates Details [...] smoker Vital Signs Date Test Result Details 10-Apr-2017 09:09 BP Systolic 120 mm[Hg] Status: Comments: Location: ; Position: BP Diastolic 72 mm[Hg] Status: Comments: Location: ; Position: Temperature 97.7 f Status: Heart Rate 80 /min Status: Height 60 in Status: Weight 187 lb Status: Physical Findings 96 Status: Comments: O2 Saturation Body Mass Index Calculated 36.52 kg/m2 Status: Body Surface Area Calculated 1.81 m2 Status: 25-Mar-2017 11:02 BP Systolic 102 mm[Hg] Status: Comments: Location: ; Position: BP Diastolic 60 mm[Hg] Status: Comments: Location: ; Position: Weight 196 lb Status: Body Mass Index Calculated 37.34 kg/m2 Status: Body Surface Area Calculated 1.87 m2 Status: Results Date Description Value Details 27-Mar-2017 09:46 Chlamydia/GC TMA Assay [id number] Comments: Jaeger performed at: [facility] [address] [place], [address], Social Media Marketer: Eric Tai D.O., MPHQuest Collection Date/Time: [id number] Results Received Date/Time: [id number] Reported Date/Time: [id number] CHLAMYDIA TRACHOMATIS RNA, TMA NOT DETECTED Range: NOT DETECTED Comments: [[place]]----- NEISSERIA GONORRHOEAE RNA, TMA NOT DETECTED Range: NOT DETECTED Comments: [[place]]----- COMMENT SEE NOTE Comments: This test was performed using the APTIMA COMBO2 Assay([employer]The analytical performance characteristics of thisassay, when used to test SurePath specimens havebeen determined by [employer].[[place]]----- Plan of Care Name Dates Details Planned Observations Planned Goals not documented Planned Encounters Appointment; Provider: Lasha Bee M.D. On 05-Aug-2017 14:00 Interventions Provided Medication Changes* Amoxicillin 500 MG Oral Capsule - Start * PNV Plus Multivitamin 27-1 MG Oral Tablet - Stop * PredniSONE 10 MG Oral Tablet - Start Instructions Name Dates Details Instructions not documented Encounters Appointment; Lasha Bee M.D. Encounter Diagnosis: Problem not documented On 25-Mar-2017 11:00 Appointment; Lasha Bee M.D. Encounter Diagnosis: Problem [...]
--- OUTSIDE RECORDS SUMMARY | 2017-04-19 18:59 | XMS REPORT | Summary of Care ---
Author Author Bryan Delgado M.D. Organization Unknown Address Unknown Phone Unavailable Care Team Providers Care Spray Gunner Name Role Phone Juan Carlos Delgado M.D. Unavailable Unavailable Bryan Delgado Unavailable Unavailable Unavailable Unavailable Functional Status Name Dates Details Functional status health issues are not documented Status: Name Dates Details Cognitive status health issues are not documented Status: Problems Name Dates Details Contraception management (V25.9, Z30.9) Status: Active Asthma (493.90, J45.909) Status: Active Medications Name Dates Details Dulera 200-5 MCG/ACT Inhalation Aerosol INHALE 2 PUFFS TWICE DAILY. Quantity: 1 * Start 08-Oct-2016 Active 13 GM Inhaler ProAir RespiClick 108 (90 Base) MCG/ACT Inhalation Aerosol Powder Breath Activated * Refills: 0 * Start 15-Dec-2016 Active Allergies and Adverse Reactions Name Dates [...] Name Dates Details Tdap (Adacel) Lot #: [id number] on: 29-Dec-2012 Social History Name Dates Details - Status: Name Dates Details Never smoker Vital Signs [...] (90 Base) MCG/ACT Inhalation Aerosol Solution - Stop Instructions Name Dates Details Instructions not documented Encounters Appointment; Jovany Washington M.D. Encounter Diagnosis: Problem not documented On 10-Dec-2016 11:15 Appointment; Karen Kovacs A.P.R.N. Encounter Diagnosis: Problem not documented On 08-Oct-2016 15:30
--- OUTSIDE RECORDS SUMMARY | 2017-04-19 18:59 | XMS REPORT ---
Author Leland Mattson [facility] eClinicalWorks Address Unknown Phone Unavailable Care Team Providers Care Pigs Feet Cleaner Name Role Phone Leland Baird Unavailable Allergies, Adverse Reactions, Alerts Substance Reaction Event Type N.K.D.A. Info Not Available Non Drug Allergy Problems Problem Type Condition Code Onset Dates Condition Status Assessment Severe persistent asthma J45.50 Active Problem Presence of subdermal contraceptive device V45.52 Active Assessment Exacerbation of asthma J45.901 Active Assessment Insomnia G47.00 Active Problem Exacerbation of asthma [...] Start Date End Date Status Dosage Dulera [facility] [address]-15 100-5 MCG/ACT Inhalation Twice a day 2 puffs Sudafed 12 Hour [facility] [address]-02 120 MG Orally every 12 hrs 1 tablet as needed Zantac 75 [facility] [address]-85 75 MG Orally not defined Augmentin [facility] [address]-73 875-125 MG Orally every 12 hrs 1 tablet Trazodone HCl [facility] [address]-66 50 MG Orally at bedtime Oct 09, 2016 1-2 tablets as needed Bactrim DS [facility] [address]-67 800-160 MG Orally Twice a day 1 tablet ProAir HFA [facility] [address]-92 108 (90 Base) MCG/ACT Inhalation every 4 hrs 2 puffs as needed Procedures Procedure Coding System Code Date OFFICE VISIT EST PATIENT LEVEL 3 CPT-4 56709 Oct 09, 2016 Vital Signs Date/Time: Oct 09, 2016 BMI 47.41 Index Weight 172 lbs Height 50.5 in Blood Pressure Diastolic 80 mm Hg Blood Pressure Systolic 118 mm Hg Cardiac Monitoring Heart Rate 70 /min Temperature 96.4 F Oximetry 90 % Respiratory Rate 18 /min Results No Known Results Summary Purpose eClinicalWorks Submission
--- OUTSIDE RECORDS SUMMARY | 2017-04-19 18:59 | XMS REPORT ---
Author Author Leland Baird [facility] Address [address] [place], [place] [address] Care Team Providers Care Supervisor Hardboard Name Role Phone Leland Baird Unavailable [phone] PROBLEMS Type Condition ICD9-CM Code ZRL54-JL Code Onset Dates Condition Status SNOMED Code Problem Presence of subdermal contraceptive device V45.52 Active 630900271 Problem Unspecified disorder of menstruation and other abnormal bleeding from female genital tract 626.9 Active 806670596 Problem examination or test, negative result V72.41 Active 842674055 Assessment Amenorrhea N91.2 Oct, Active 58227058 Problem Obesity, morbid, BMI 40.0-49.9 E66.01 Active 297583793 Problem Insomnia G47.00 Active 891994108 Problem Lumbar back pain M54.5 Active 099075105 Problem Encounter for vaccination Z23 Active 215877372 Problem Exacerbation of asthma J45.901 Active 051341960 Problem Severe persistent asthma J45.50 Active 432795201 ALLERGIES Unknown Allergies SOCIAL HISTORY No smoking Hx information available PLAN OF CARE VITAL SIGNS MEDICATIONS Unknown Medications RESULTS No Results PROCEDURES No Known procedures IMMUNIZATIONS No Known Immunizations
--- OUTSIDE RECORDS SUMMARY | 2017-04-19 18:59 | XMS REPORT ---
Author Author Margie Baird Organization eClinicalWorks Address Unknown Phone Unavailable Care Team Providers Care Film Archivist Name Role Phone Margie Baird CP Unavailable Allergies No Known Allergies Problems No Known Problems Medications No Known Medications Results No Known Results Summary Purpose eClinicalWorks Submission
--- OUTSIDE RECORDS SUMMARY | 2017-04-19 18:59 | XMS REPORT | Summary of Care ---
Author Author Jovany Washington M.D. Organization Unknown Address Unknown Phone Unavailable Care Team Providers Care Stitch Separator Name Role Phone Karen Kovacs APRN Unavailable Unavailable Jovany Washington M.D. Unavailable Unavailable Yordan Castle M.D. Unavailable Unavailable Bryan Delgado Unavailable Unavailable Unavailable Unavailable Functional Status Name Dates Details Functional status health issues are not documented Status: Name Dates Details Cognitive status health issues are not documented Status: Problems Name Dates Details Control Method - Subdermal Contraceptive Implant (V45.52) Status: Auto Complete Contraception management (V25.9, Z30.9) Status: Active Asthma (493.90, J45.909) Status: Active Right otitis media (382.9, H66.91) Status: Active Acute otitis externa of right ear (380.10, H60.501) Status: Active Medications Name Dates Details Nexplanon 68 MG Subcutaneous Implant USE DIRECTED. Quantity: 1 Berkley Castle M.D. * Start 05-Apr-2013 Active Dulera 200-5 MCG/ACT Inhalation Aerosol INHALE 2 PUFFS TWICE DAILY. * Quantity: 1 Refills: 6 * Start 08-Oct-2016 Active 13 GM Inhaler Ciprodex 0.3-0.1 % Otic Suspension Instill 6-8 drops in affected ear 3 times a day * Quantity: 1 Refills: 1 Jovany Washington M.D. * Start 05-Nov-2016 Active 7.5 ML Bottle Ventolin HFA 108 (90 Base) MCG/ACT Inhalation [...] Name Dates Details Tdap (Adacel) Lot #: [id number] on: 29-Dec-2012 Social History Name Dates Details Control Method - Subdermal Contraceptive Implant (V45.52) Comments: Nexplanon inserted in left arm, [id number] Status: Auto Complete as of 04-Apr-2016 Name Dates Details Never smoker Vital Signs Date Test Result Details No Known Vitals to report Results Date Description Value Details Results not documented Plan of Care Name Dates Details Planned Observations Planned Goals not documented Planned Encounters Appointment; Provider: Karen Kovacs A.P.R.N. On 20-Jan-2017 15:00 Appointment; Provider: Jovany Washington M.D. On 31-Dec-2016 14:30 Appointment; Provider: Bryan Delgado M.D. On 15-Dec-2016 09:45 Instructions Name Dates Details Instructions not documented Encounters Appointment; Karen Kovacs A.P.R.N. Encounter Diagnosis: Problem not documented On 08-Oct-2016 15:30
--- OUTSIDE RECORDS SUMMARY | 2017-04-19 18:59 | XMS REPORT | Summary of Care ---
Author Author Felix Sands, Jovany Organization Unknown Address Unknown Phone Unavailable Care Team Providers Care Pyrotechnician Name Role Phone Jhonny Arroyo M.D. Unavailable Unavailable Latha Harvey Unavailable Unavailable Jovany Washington M.D. Unavailable Unavailable No Assigned PCP-Pt Confirmed [...] low back pain (724.2, M54.5) Status: Active Acute pharyngitis (462, J02.9) Status: Active Acute otitis externa of right ear (380.10, H60.501) Status: Active Medications Name Dates Details Dulera 200-5 MCG/ACT Inhalation Aerosol INHALE 2 PUFFS TWICE DAILY. Quantity: 1 * Start 08-Oct-2016 Active 13 GM Inhaler ProAir RespiClick 108 (90 Base) MCG/ACT Inhalation Aerosol Powder Breath Activated * Refills: 0 * Start 15-Dec-2016 Active Naproxen 500 MG Oral Tablet TAKE 1 TABLET EVERY 12 HOURS DAILY. * Quantity: 60 Refills: 2 Jhonny Arroyo M.D. * Start 24-Dec-2016 Active Baclofen 10 MG Oral Tablet TAKE 1 TABLET 4 TIMES DAILY. * Quantity: 40 Refills: 2 Jhonny Arroyo M.D. * Start 24-Dec-2016 Active PredniSONE 10 MG Oral Tablet TAKE 6 TABLETS TODAY, THEN DECREASE BY 1 TABLET EACH DAY UNTIL GONE. * Quantity: 21 Refills: 0 Latha Harvey * Start 07-Jan-2017 Active Amoxicillin-Pot Clavulanate 875-125 MG Oral Tablet TAKE 1 TABLET EVERY 12 HOURS DAILY. * Quantity: 20 Refills: 0 Latha Harvey * Start 07-Jan-2017 End 17-Jan-2017 Active ZyrTEC Allergy 10 MG Oral Capsule * Refills: 0 Jhonny Arroyo M.D. * Start 24-Dec-2016 Active TraMADol HCl - 50 MG Oral Tablet * Refills: 0 * Start 24-Dec-2016 Active Allergies and Adverse [...] Name Dates Details Tdap (Adacel) Lot #: [id number] on: 29-Dec-2012 Family History Name Dates Details [...] smoker Vital Signs Date Test Result Details 07-Jan-2017 15:29 BP Systolic 118 mm[Hg] Status: Comments: Location: LUE; Position: Sitting BP Diastolic 78 mm[Hg] Status: Comments: Location: LUE; Position: Sitting Temperature 98.2 f Status: Comments: Method: Heart [...] Location: ; Position: Temperature 98.4 f Status: Comments: Method: Heart Rate 84 /min Status: Comments: Location: ; Physical Findings 16 Status: Comments: Respiration Physical Findings 97 Status: Comments: O2 Saturation Results Date Description Value Details 15-Dec-2016 13:15 [...] Arroyo M.D. On 10-Feb-2017 13:30 Appointment; Provider: Lasha Bee M.D. On 20-Jan-2017 14:15 Instructions Name Dates Details Instructions not documented Encounters Appointment; Latha Harvey APRN Encounter Diagnosis: Problem [...]
--- OUTSIDE RECORDS SUMMARY | 2017-04-19 18:59 | XMS REPORT | Summary of Care ---
Author Author Bryan Delgado M.D. Organization Unknown Address Unknown Phone Unavailable Care Team Providers Care Ticket Worker Name Role Phone Orville Steve D.O. Unavailable Unavailable Juan Carlos Delgado M.D. Unavailable Unavailable Bryan [...] and muscle * Quantity: 30 Refills: 0 Power Basilio.Leland Landeros * Start 15-Dec-2016 End 25-Dec-2016 Active Allergies and [...] Name Dates Details Tdap (Adacel) Lot #: [id number] on: 29-Dec-2012 Family History Name Dates Details [...] Status: Active Name Dates Details Never smoker Never smoker Vital Signs Date Test Result [...]
--- OUTSIDE RECORDS SUMMARY | 2017-04-19 18:59 | XMS REPORT ---
Author Margie Mattson Organization eClinicalWorks Address Unknown Phone Unavailable Care Team Providers Care Nurse Head Name Role Phone Margie Baird CP Unavailable Allergies No Known Allergies Problems No Known Problems Medications No Known Medications Results No Known Results Summary Purpose eClinicalWorks Submission
--- OUTSIDE RECORDS SUMMARY | 2017-04-19 18:59 | XMS REPORT | Summary of Care ---
Author Author Jhonny Arroyo M.D. Organization Unknown Address [address] [place] [address] Phone Unavailable Care Team Providers Care Financial Data Analyst Name Role Phone Alyssa Bee M.D. Unavailable [...] Chewable * Refills: 0 Lasha Bee M.D. Start 20-Jan-2017 Active Allergies and Adverse Reactions [...] Name Dates Details Tdap (Adacel) Lot #: [id number] on: 29-Dec-2012 Family History Name Dates Details [...] smoker Vital Signs Date Test Result Details 10-Feb-2017 14:06 BP Systolic 134 mm[Hg] Status: Comments: Location: ; Position: BP Diastolic 90 mm[Hg] Status: Comments: Location: ; Position: Heart Rate 86 /min Status: Weight 188 lb Status: Body Mass Index Calculated 35.82 kg/m2 Status: Body Surface Area Calculated 1.83 m2 Status: 20-Jan-2017 14:19 BP Systolic 102 mm[Hg] Status: Comments: Location: ; Position: BP Diastolic 74 mm[Hg] Status: Comments: Location: ; Position: Height 60.75 in Status: Weight 188 lb Status: Body Mass Index Calculated 35.82 kg/m2 Status: Body Surface Area Calculated 1.83 m2 Status: Results Date Description Value Details 20-Jan-2017 16:17 [...] Appointment; Provider: Rafael Coe On 17-Feb-2017 16:00 Instructions Name Dates Details Instructions not documented [...]
--- OUTSIDE RECORDS SUMMARY | 2017-04-19 18:59 | XMS REPORT ---
Author Author Leland Baird [facility] eClinicalWorks Address Unknown Phone Unavailable Care Team Providers Care Roller Hand Name Role Phone Leland Baird Unavailable Allergies, Adverse Reactions, Alerts Substance Reaction Event Type N.K.D.A. Info Not Available Non Drug Allergy Problems Problem Type Condition Code Onset Dates Condition Status Assessment Lumbar back pain M54.5 Active Assessment Encounter for vaccination Z23 Active Problem Lumbar back pain M54.5 Active Problem Encounter for vaccination Z23 Active Problem Severe persistent asthma J45.50 Active Problem Presence of subdermal contraceptive device V45.52 Active Assessment Severe persistent asthma J45.50 Active Problem Unspecified disorder of menstruation and other abnormal bleeding from female genital tract 626.9 Active Problem examination or test, negative result V72.41 Active Medications Medication Code System Code Instructions Start Date End Date Status Dosage Cyclobenzaprine HCl [facility] [address]-32 10 MG Orally Three times a day OctDec 17, 2015 1 tablet as needed ProAir HFA [facility] [address]-95 108 (90 Base) MCG/ACT Inhalation every 4 hrs 2 puffs as needed Zyrtec Allergy [facility] [address]-65 10 MG Orally Once a day 1 tablet as needed Zantac 75 [facility] [address]-10 75 MG Orally not defined Diclofenac Sodium [facility] [address]-75 75 MG Orally twice a day with food Nov 07, 2015 Dec 07, 2015 1 tablet Procedures Procedure Coding System Code Date *Fluzone, quad, 3+ yrs, 0.5mL, any insurance CPT-4 10391 Nov 07, 2015 OFFICE VISIT NEW PATIENT LEVEL 2 CPT-4 09787 Nov 07, 2015 IMMUNIZATION ADMIN CPT-4 12347 Nov 07, 2015 Vital Signs Date/Time: Nov 07, 2015 BMI 48.68 Index Weight 176.6 lbs Height 50.5 in Blood Pressure Diastolic 74 mm Hg Blood Pressure Systolic 110 mm Hg Cardiac Monitoring Heart Rate 64 /min Temperature 97.9 F Respiratory Rate 18 /min Results Name Result Date Reference Range Unit Abnormality Flag X Ray : Spine Lumbar 2 View Limited Immunizations Vaccine Administration Date *Fluzone, quad, 3+ yrs, 0.5mL, any insurance Nov 07, 2015 Summary Purpose eClinicalWorks Submission
--- OUTSIDE RECORDS SUMMARY | 2017-04-19 18:59 | XMS REPORT ---
Author Author Lasha Bee Organization Unknown Address [address], [place] [id number] Phone Care Team Providers Care Strip Cleaner Name Role Phone Alyssa Bee PP Unavailable Reason for Referral No Reason for Referral was given. History of Present Illness No HPI available. Problems * Normal Routine History And Physical Adult (V70.0); (Active) * Asthma (493.90); (Active) * Supervision Of Normal (V22.1); (Active) Medication * Advair Diskus 100-50 MCG/DOSE Inhalation Aerosol Powder Breath Activated; INHALE ONE PUFF BY MOUTH TWICE A DAY; Start Date: 07/09/2010; End Date: 1899 (Active) * ProAir HFA 108 (90 Base) MCG/ACT Inhalation Aerosol Solution; INHALE TWO PUFFS EVERY 4 TO 6 HOURS NEEDED; Start Date: 05/13/2011; End Date: 1899 (Active) * Plus DHA 7-0.4-100 MG Oral Tablet; Start Date: 08/24/2012 (Active) Allergies and Adverse Reactions * No Known Drug Allergies (Active) Past Medical History * History of Supervision Of Normal First (V22.0); (Resolved) Procedures Procedure Procedure Date Date Completed Status Obstetrical Surgery 09/09/2010 - Active Immunization * Tdap (Adacel) (Lot #: [id number]) - Administered on: 12/29/2012 Vital Signs Date Description Test Result 02 Feb 2013 01:21 PM recorded by: Shana Hung Weight 176 lb Body Mass Index Calculated 34.55 Body Surface Area Calculated 1.76 BP Systolic 100 mm[Hg] BP Diastolic 70 mm[Hg] Treatment Plan * PAP SMEAR 9600 03/04/2010 Routine * PAP SMEAR 9600 11/12/2010 Routine * HIV 1,2 ASSAY 3400 08/24/2012 Routine * OBSTETRIC PANEL 2130 08/24/2012 Routine * Urinalysis, Reflex to Microscopic or Culture PRN 8005 08/24/2012 Routine * Urine Culture PRN 8000 08/24/2012 Routine * CHLAMYDIA & GONORRHOEAE DNA PROBES 5610 08/24/2012 Routine Advance Directives * No Advance Directives available. Encounters * Appointment 02/02/2013 * OBRTN , Provider: Rohit Colby, Status: Koby , Time: 1:15 PM 2012
--- OUTSIDE RECORDS SUMMARY | 2017-04-19 18:59 | XMS REPORT | Summary of Care ---
Author Author Latha Harvey Organization Unknown Address [address] [place], [place] [address] Phone Unavailable Care Team Providers Care Gang Pusher Name Role Phone Jhonny Arroyo M.D. Unavailable Unavailable Latha Harvey Unavailable Unavailable No Assigned PCP-Pt Confirmed Unavailable [...] Active Acute pharyngitis (462, J02.9) Status: Active Medications Name Dates Details Dulera [...] DAILY. * Quantity: 40 Refills: 2 Cruz MJhonny Branch * Start 24-Dec-2016 Active PredniSONE 10 MG Oral Tablet TAKE 6 TABLETS TODAY, THEN DECREASE BY 1 TABLET EACH DAY UNTIL GONE. * Quantity: 21 Refills: 0 Latha Harvey * Start 07-Jan-2017 Active Amoxicillin-Pot Clavulanate 875-125 MG Oral Tablet TAKE 1 TABLET EVERY 12 HOURS DAILY. * Quantity: 20 Refills: 0 Latha Harvey * Start 07-Jan-2017 End 17-Jan-2017 Active Allergies and Adverse Reactions Name Dates [...] Name Dates Details Tdap (Adacel) Lot #: [id number] on: 29-Dec-2012 Family History Name Dates Details [...] f Status: Heart Rate 87 /min Status: Comments: Location: ; Physical Findings 98 Status: Comments: O2 Saturation 24-Dec-2016 14:06 BP Systolic 130 mm[Hg] Status: Comments: Location: LUE; Position: Sitting BP Diastolic 88 mm[Hg] Status: Comments: Location: LUE; Position: Sitting Heart Rate 94 /min Status: Comments: Location: [...] Arroyo M.D. On 10-Feb-2017 13:30 Appointment; Provider: Jovany Washington M.D. On 14-Jan-2017 10:30 Interventions Provided Medication Changes* Amoxicillin-Pot Clavulanate 875-125 MG Oral Tablet - Start * PredniSONE 10 MG Oral Tablet - Start Instructions Name Dates Details Instructions not documented Encounters Appointment; Jhonny Arroyo M.D. Encounter Diagnosis: Problem [...]
--- OUTSIDE RECORDS SUMMARY | 2017-04-19 18:59 | XMS REPORT | Summary of Care ---
Author Kirill Blackmon M.D. Organization Unknown Address Unknown Phone Unavailable Care Team Providers Care Maintenance Director Name Role Phone Orville Ashby M.D. Unavailable [...] routine gynecological examination (V72.31, Z01.419) Status: Active Screen for STD (sexually transmitted disease) (V74.5, Z11.3) Status: Active Asthma (493.90, J45.909) Status: Active Lumbar paraspinal muscle spasm (724.8, M62.830) Status: Active Chronic low back pain (724.2, M54.5) Status: Active Amenorrhea (626.0, N91.2) Status: Active Abnormal uterine bleeding unrelated to menstrual cycle (626.9, N93.9) Status: Active Acute sinusitis (461.9, J01.90) Status: Active Uterine cramping (625.8, N94.89) Status: Active Medications Name Dates Details ProAir RespiClick 108 (90 Base) MCG/ACT Inhalation Aerosol Powder Breath Activated * Start 15-Dec-2016 Active Amoxicillin 500 MG Oral Capsule TAKE 1 CAPSULE 3 TIMES DAILY UNTIL GONE. * Quantity: 30 Refills: 0 Thode M.DKirill Grajeda * Start 10-Apr-2017 End 20-Apr-2017 Active PredniSONE 10 MG Oral Tablet TAKE 4 TABLETS DAILY FOR 2 DAYS,3 TABLETS DAILY FOR 2 DAYS, 2 TABLETS DAILY FOR 2 DAYS AND 1 TABLET DAILY FOR 2 DAYS, THEN STOP. * Quantity: 20 Refills: 0 Thode M.D., Kirill Jacinto * Start 10-Apr-2017 Active ZyrTEC Allergy 10 MG Oral Capsule * Refills: 0 Cruz M.DJhonny Grajeda Start 24-Dec-2016 Active Allergies and Adverse Reactions [...] Name Dates Details Tdap (Adacel) Lot #: [id number] on: 29-Dec-2012 Family History Name Dates Details [...] Value Details 27-Mar-2017 09:46 Chlamydia/GC TMA Assay [id number] Comments: [employer] performed at: [facility] [address] [place], [address], Architectural Design Professor: Eric Tai D.O., MPHQuest Collection Date/Time: [id number] Results Received Date/Time: [id number] Reported Date/Time: [id number] CHLAMYDIA TRACHOMATIS RNA, TMA NOT DETECTED Range: NOT DETECTED Comments: [CA]----- NEISSERIA GONORRHOEAE RNA, TMA NOT DETECTED Range: NOT DETECTED Comments: [CA]----- COMMENT SEE NOTE Comments: This test was performed using the APTIMA COMBO2 Assay([employer]The analytical performance characteristics of thisassay, when used to test SurePath specimens havebeen determined by [employer].[CA]----- Plan of Care Name Dates Details Planned [...]
--- OUTSIDE RECORDS SUMMARY | 2017-04-19 18:59 | XMS REPORT ---
Author Author Margie Baird Organization eClinicalWorks Address Unknown Phone Unavailable Care Team Providers Care Systems Administrator Name Role Phone Margie Baird CP Unavailable Allergies No Known Allergies Problems No Known Problems Medications No Known Medications Results No Known Results Summary Purpose eClinicalWorks Submission
--- OUTSIDE RECORDS SUMMARY | 2017-04-19 18:59 | XMS REPORT | Summary of Care ---
Author Author Karen Kovacs APRN Organization Unknown Address [address] [place], [place] [address] Phone Unavailable Care Team Providers Care Heavy Lift Rigger Name Role Phone Fermín KUMARINKaren Unavailable Unavailable Yordan Castle M.D. Unavailable Unavailable No Assigned PCP-Pt Confirmed Unavailable Unavailable Unavailable Unavailable Functional Status Name Dates Details Functional status health issues are not documented Status: Name Dates Details Cognitive status health issues are not documented Status: Problems Name Dates Details Control Method - Subdermal Contraceptive Implant (V45.52) Status: Auto Complete Asthma (493.90, J45.909) Status: Active Contraception management (V25.9, Z30.9) Status: Active Medications Name Dates Details Nexplanon [...] Name Dates Details Tdap (Adacel) Lot #: [id number] on: 29-Dec-2012 Social History Name Dates Details Control Method - Subdermal Contraceptive Implant (V45.52) Comments: Nexplanon inserted in left arm, [id number] Status: Auto Complete as of 04-Apr-2016 Name [...]
--- OUTSIDE RECORDS SUMMARY | 2017-04-19 18:59 | XMS REPORT ---
Author Author Leland Baird [facility] eClinicalWorks Address Unknown Phone Unavailable Care Team Providers Care Television Maintenance Worker Name Role Phone Leland Baird CP Unavailable Allergies No Known Allergies Problems Problem Type Condition Code Onset Dates Condition Status Assessment Routine adult health maintenance Z00.00 Active Problem examination or test, negative result [...] Problem Lumbar back pain M54.5 Active Medications No Known Medications Results Name Result Date Reference Range Unit Abnormality Flag Hemoglobin A1C ----HEMOGLOBIN A1C 5.6 [id number] Summary Purpose eClinicalWorks Submission
[2017-04-19 19:12] VITALS: Ht 152.4 cm; Wt 87.1 kg
--- NOTE | 2017-04-19 19:26 | ERPDOC ---
Departure Disposition Decision Date: April 19, 2017 Disposition Decision Time: 21:51 Disposition: 01 DISCHARGED HOME, SELF-CARE Impression Impression Impression: Primary Impression: Abdominal pain Abdominal location: lower abdomen, unspecified Qualified Codes: R10.30 - Lower abdominal pain, unspecified Severity: Moderate Condition: Stable Seen By: Mid-level only Patient Instructions: Abdominal Pain (ED) Problems/Meds/Labs Reviewed?: Yes Medications reviewed and manag: Yes Additional Instructions: Take the Hobucken for pain and the Zofran as needed for nausea. I do want you to follow up with your primary care provider or [employer] this week if pain is not improving at all. If pain is severe, fever, or vomiting then return to ER for reevaluation. Follow up care ordered?: Yes Mental Status: Alert Scripts Hydrocodone/Acetaminophen (Hobucken 5-325 Tablet) 5-325 Tablet 1 TAB PO Q6H Y for PAIN, #12 TAB 0 Refills Prov: BENJI POLANCO APRN 04/19/17 Ondansetron (Zofran Odt) 4 Mg Tab.rapdis 4 MG PO Q8HR, #7 TAB 0 Refills Orally disintegrating tablet Prov: BENJI POLANCO APRN 04/19/17 HPI - Abdominal Pain General Chief Complaint: Abdominal Pain Stated Complaint: ABDOMINAL PAIN Time Seen by Provider: 19:19 Source: patient History/Exam Limitations: no limitations HPI - Abdominal Pain Initial Comments For the last 3 days she has had some RLQ abdominal pain. She has had some nausea but no vomiting. Denies any fever or chills or diarrhea. Pain has gotten progressively worse and today felt like she could not stand up at work. She has never had pain like this in the past. Last ate a slice of pizza on the way here about 30 minutes ago. Occurred At: home Onset: Gradual Duration: other (Over the last 3 days) Quality: sharpness Location: RLQ Radiation: no radiation Activities at Onset: none Associated Symptoms: nausea/vomiting (nausea, no vomiting), DENIES: back pain, chest pain, diaphoresis, fatigue, fever/chills, headache, heartburn, rash, shortness of breath, swelling/mass in abdomen, syncope, weakness Hx of Similar Symptoms: No Allergies: Coded Allergies: NKDA (Verified Allergy, Unknown, 04/19/17) Past History Past Medical History Pt denies signifigant [facility] Surgical History Denies Surgeries Family History Family History: Negative Social History Smoking Status: Never smoker Substance Use Type: does not use Alcohol Intake: none Review of Systems Constitutional Constitutional: DENIES: chills, dizziness, fatigue, fever, weakness ENMT Sinuses: DENIES: congestion, rhinorrhea Mouth/Throat: DENIES: scratchy throat, sore throat Cardiovascular Cardiac: DENIES: chest pain, orthopnea Rhythm/Rate: DENIES: irregular beat, palpitations Pulmonary Respiratory: DENIES: cough, dyspnea, sputum GI Upper Abdomen: nausea, DENIES: pain, vomiting Lower Abdomen: pain, DENIES: blood in stool, constipation, diarrhea General: DENIES: dysuria, frequency, hematuria, urgency Integumentary Skin: DENIES: rash Neurological General: DENIES: headache, numbness, tingling, weakness Physical Exam General General Nourishment: well nourished, well developed, appears stated age, no acute distress, adult, obese General Body Habitus: well groomed Vitals and Pain First Documented Vital Signs Date Time Temp Pulse Resp B/P Pulse Ox O2 Delivery O2 Flow Rate FiO2 04/19/17 19:12 98.0 73 16 134/85 95 Room Air Weight: Kilograms: Height (feet): Height (inches): Triage Pain Scale: RN VS reviewed by Provider: Yes Normal Exams: Neck: Full range of motion, without adenopathy, JVD, bruits or thyromegaly Chest/Resp: Clear all frias, with good airflow, and symmetry bilaterally CV: Regular rate and rhythm, without murmur or gallop, Pulses 2+ all extremities, capillary refill, <2 seconds all ext., no pedal edema noted Abdomen: Bowel sounds positive, non-distended, no hepatosplenomegaly, masses or bruits noted Neurologic: Patient is alert, and oriented Psychiatric: Patient exhibits, appropriate attention, emotion and affect Abdomen Inspection: NOT FOUND: distention Palpation: FOUND: involuntary guarding, soft, tender (Moderate TTP in the periumbilical and LLQ, more intense TTP in the RLQ), NOT FOUND: voluntary guarding Differential Diagnoses Considering: Appendicitis, Bowel Obstruction, Constipation, Diverticulitis, Ectopic , UTI Progress Results/Orders Orders Lab Results Medications Current ED Medications Sodium Chloride (Normal Saline IV) 1,000 ml @ 1,000 mls/hr Q1H ONCE IV Last administered on 04/19/17 19:44; Start 04/19/17 at 19:30; Stop 04/19/17 at 20:29 ; Status DC Ondansetron HCl (Zofran) 4 mg O ONCE IV Last administered on 04/19/17 19:44; Start 04/19/17 at 19:30; Stop 04/19/17 at 19:31; Status DC Morphine Sulfate (Morphine) 4 mg O ONCE IV Last administered on 04/19/17 19: 49; Start 04/19/17 at 19:30; Stop 04/19/17 at 19:31; Status DC Iohexol 1 bottle 1 bottle STK-MED ONCE .ROUTE ; Start 04/19/17 at 20:37; Stop at 20:38; Status DC Sodium Chloride (NS) 100 ml @ As Directed STK-MED ONCE .ROUTE ; Start 04/19/17 at 20:37; Stop 04/19/17 at 20:38; Status DC Sodium Chloride (Iv Flush) 10 ml STK-MED ONCE .ROUTE ; Start 04/19/17 at 20:37; Stop 04/19/17 at 20:38; Status DC Acetaminophen/ Hydrocodone Bitart (NORCO 5 (PrePack)) 1 pack O ONCE SENT HOME Last administered on 04/19/17 22:00; Start 04/19/17 at 22:00; Stop 04/19/17 at 22:01; Status DC Ondansetron HCl (ZOFRAN ODT (PrePack)) 1 pack O ONCE SENT HOME Last administered on 04/19/17 22:00; Start 04/19/17 at 22:00; Stop 04/19/17 at 22:01 ; Status DC Ketorolac Tromethamine (Toradol) 30 mg O ONCE IV Last administered on 22:09; Start 04/19/17 at 22:00; Stop 04/19/17 at 22:01; Status DC Progress Progress WBC count is 11.7 today. No left shift. CMP is normal. However given her exam will get CT of abdomen and pelvis if HCG negative. Urine is still pending so will get serum HCG. HCG is negative. CT of abdomen is negative as well. Will go ahead and send her home with Rx for Hobucken and Zofran and have her follow up with her PCP this week or return to ER with severe pain or vomiting. She does deny any vaginal discharge. BENJI POLANCO RUG HOOKER April 19, 2017 19:26 Normal Saline (Ns) PHA 04/19/17 Complete 20:37 Saline Flush (Iv PHA 04/19/17 Complete Flush) 20:37 UA, LAB 04/19/17 Complete Dip&Micro(Complete) & 20:47 Lab Results Laboratory Tests Test 04/19/17 19:48 04/19/17 20:47 White Blood Count 11.7T/MM3 Red Blood Count 4.38M/MM3 Hemoglobin 12.6GM/DL Hematocrit 40.4% Mean Corpuscular Volume 92.2UM3 Mean Corpuscular Hemoglobin 28.8UUG Mean Corpuscular Hemoglobin Concent 31.2GM/DL RDW Standard Deviation 39.8FL Platelet Count 286T/MM3 Mean Platelet Volume 10.6UM3 Immature Granulocyte % (Auto) 0.1% Neutrophils (%) (Auto) 45.5% Lymphocytes (%) (Auto) 41.9% Monocytes (%) (Auto) 6.2% Eosinophils (%) (Auto) 5.8% Basophils (%) (Auto) 0.5% Absolute Immature Granulocyte (auto 0.01T/MM3 Absolute Neutrophils (auto) 5.3T/MM3 Absolute Lymphocytes (auto) 4.9T/MM3 Absolute Monocytes (auto) 0.7T/MM3 Absolute Eosinophils (auto) 0.7T/MM3 Absolute Basophils (auto) 0.1T/MM3 Turbidity < 20 Sodium Level 145MEQ/L Potassium Level 4.0MEQ/L Chloride Level 105MEQ/L Carbon Dioxide Level 28MEQ/L Anion Gap 12MEQ/L Blood Urea Nitrogen 13.0MG/DL Creatinine 0.6MG/DL Glomerular Filtration Rate Calc 118 BUN/Creatinine Ratio 22RATIO Glucose Level 106MG/DL Calculated Osmolality 279MOSM/KG Calcium Level 8.9MG/DL Total Bilirubin 0.30MG/DL Icterus Index < 2 Aspartate Amino Transf (AST/SGOT) 35U/L Alanine Aminotransferase (ALT/SGPT) 68U/L Alkaline Phosphatase 86U/L Total Protein 7.0G/DL Albumin 4.1G/DL Globulin 2.9G/DL Albumin/Globulin Ratio 1.4RATIO Human Chorionic Gonadotropin, Qual Negative Chemistry Specimen Hemolysis < 15 Urine Collection Type Cleancatch-midstream Urine Color Yellow Urine Turbidity Slt cldy Urine pH 7.5 Urine Specific [place] 1.010 Urine Protein Negative Urine Glucose (UA) Negative Urine Ketones Negative Urine Blood Negative Urine Nitrite Negative Urine Bilirubin Negative Urine Urobilinogen NormalEU/DL Urine Leukocyte Esterase 1+ Urine RBC 0-1/HPF Urine WBC 3-5/HPF Urine Squamous Epithelial Cells >50 Urine Amorphous Phosphates Many Urine Bacteria 1+ Urine Culture Indicated Cult not indicated Medications Current ED Medications Sodium Chloride (Normal Saline IV) 1,000 ml @ 1,000 mls/hr Q1H ONCE IV Last administered on 04/19/17 19:44; Start 04/19/17 at 19:30; Stop 04/19/17 at 20:29 ; Status DC Ondansetron HCl (Zofran) 4 mg O ONCE IV Last administered on 04/19/17 19:44; Start 04/19/17 at 19:30; Stop 04/19/17 at 19:31; Status DC Morphine Sulfate (Morphine) 4 mg O ONCE IV Last administered on 04/19/17 19: 49; Start 04/19/17 at 19:30; Stop 04/19/17 at 19:31; Status DC Iohexol 1 bottle 1 bottle STK-MED ONCE .ROUTE ; Start 04/19/17 at 20:37; Stop at 20:38; Status DC Sodium Chloride (NS) 100 ml @ As Directed STK-MED ONCE .ROUTE ; Start 04/19/17 at 20:37; Stop 04/19/17 at 20:38; Status DC Sodium Chloride (Iv Flush) 10 ml STK-MED ONCE .ROUTE ; Start 04/19/17 at 20:37; Stop 04/19/17 at 20:38; Status DC Progress Progress WBC count is 11.7 today. No left shift. CMP is normal. However given her exam will get CT of abdomen and pelvis if HCG negative. Urine is still pending so will get serum HCG. BENJI POLANCO APRN April 19, 2017 19:26
[2017-04-19] MEDS ORDERED: ONDANSETRON 4mg/2ml INJECTION IV ONE (19:30)
[2017-04-19] MEDS ORDERED: NORMAL SALINE 1,000 ML IV ONE (19:30)
[2017-04-19] MEDS ORDERED: MORPHINE SULFATE 4 MG SYRINGE IV ONE (19:30)
[2017-04-19] MEDS ORDERED: FEXO180T94 PO (19:48)
[2017-04-19] MEDS ORDERED: ALBU8.5H INH (19:48)
[2017-04-19] MEDS ORDERED: CETI-115 PO (19:48)
[2017-04-19] MEDS ORDERED: AMOX500C2 PO (19:49)
[2017-04-19] MEDS ORDERED: PRED2.5T PO (19:49)
[2017-04-19 19:59] LABS: BASOPHILS # (AUTO) 0.1 T/MM3 (0-0.2); BASOPHILS % (AUTO) 0.5 % (0-2); EOSINOPHILS # (AUTO) 0.7 T/MM3 (0-0.5); EOSINOPHILS % (AUTO) 5.8 % (0-4); HCT - HEMATOCRIT 40.4 % (36-46); HGB - HEMOGLOBIN 12.6 GM/DL (12-16); IMMATURE GRANULOCYTE # (AUTO) 0.01 T/MM3 (0.00-0.03); IMMATURE GRANULOCYTE % (AUTO) 0.1 % (0.0-0.5); LYMPHOCYTES # (AUTO) 4.9 T/MM3 (1-4.8); LYMPHOCYTES % (AUTO) 41.9 % (23-45); MEAN CORPUSCULAR HGB 28.8 UUG (26-34); MEAN CORPUSCULAR HGB CONC(MCHC 31.2 GM/DL (31-37); MEAN CORPUSCULAR VOLUME 92.2 UM3 (80-100); MEAN PLATELET VOLUME 10.6 UM3 (9.4-12.4); MONOCYTES # (AUTO) 0.7 T/MM3 (0-0.8); MONOCYTES % (AUTO) 6.2 % (0-9.0); NEUTROPHILS #(AUTO)-ABSOLUTE 5.3 T/MM3 (1.8-7.7); NEUTROPHILS % (AUTO) 45.5 % (33-66); RED BLOOD COUNT 4.38 M/MM3 (4.00-5.20); WBC - WHITE BLOOD COUNT 11.7 T/MM3 (4.5-11.0)
[2017-04-19 20:05] LABS: ALBUMIN 4.1 G/DL (3.5-5.0); ALBUMIN/GLOBULIN RATIO 1.4 RATIO (1.1-2.2); ALKALINE PHOSPHATASE 86 U/L (38-126); ALT (SGPT) 68 U/L (9-52); ANION GAP 12 MEQ/L (5-15); AST (SGOT) 35 U/L (14-36); BUN/CREATININE RATIO 22 RATIO (6-26); CALCIUM 8.9 MG/DL (8.4-10.2); CHLORIDE 105 MEQ/L (98-107); CO2 - CARBON DIOXIDE 28 MEQ/L (22-30); CREATININE 0.6 MG/DL (0.7-1.2); GLOMERULAR FILTRATION RATE 118; GLUCOSE 106 MG/DL (65-110); SODIUM 145 MEQ/L (134-144)
[2017-04-19] MEDS ORDERED: NORMAL SALINE 100 ML ONE (20:37)
[2017-04-19] MEDS ORDERED: IOHEXOL 300 MG/ML 100ml INJECTION ONE (20:37)
[2017-04-19] MEDS ORDERED: SALINE FLUSH 10ml SYRINGE ONE (20:37)
[2017-04-19 21:38] LABS: COLOR,URINE YELLOW (YELLOW)
[2017-04-19 21:39] LABS: BLOOD, URINE NEGATIVE (NEGATIVE); LEUKOCYTE ESTERASE ,URINE 1+ (NEGATIVE); NITRITE,URINE NEGATIVE (NEGATIVE); UROBILINOGEN,URINE NORMAL (NORMAL)
[2017-04-19 21:44] LABS: BACTERIA,URINE 1+ (NEGATIVE); RBC,URINE 0-1 /HPF (0-3); SQUAMOUS EPITHELIAL CELL,UR >50
[2017-04-19] MEDS ORDERED: ONDA4TAB7 PO (21:53)
[2017-04-19] MEDS ORDERED: HYDR-4246 PO (21:53)
[2017-04-19] MEDS ORDERED: HYDROCODONE/APAP 5/325 (PrePack) SENT HOME ONE (22:00)
[2017-04-19] MEDS ORDERED: KETOROLAC 30mg/ml INJECTION IV ONE (22:00)
[2017-04-19] MEDS ORDERED: ONDANSETRON ODT 4mg #3 (PrePack) SENT HOME ONE (22:00)
[2017-04-19 22:15] VITALS: BP 150/78; PULSE 60; RESP 18; TEMP 98; O2SAT 97
--- NOTE | 2017-04-20 10:14 | DI ---
Indication: ITS.REASON: abdominal pain PROCEDURE: CT ABD/PELVIS W/CONTRAST ONLY: Encounter: Initial Comparison: None Technique: Axial CT images were performed through the abdomen and pelvis after the administration of intravenous contrast. Coronal and sagittal two-dimensional reformats. Automated Exposure Control and Iterative Reconstruction dose reducing techniques were utilized. Contrast: Omnipaque 300 100 mL Findings: Nonspecific groundglass nodule in the right lower lobe, presumably benign in a patient of this age. Minimal bibasilar atelectasis. The liver is decreased in attenuation relative to the spleen consistent with fatty infiltration. No bile duct dilatation. The gallbladder is normal. The spleen, pancreas and adrenal glands are within normal limits. The kidneys are normal. No abdominal or pelvic lymphadenopathy. The bladder, uterus, ovaries and rectum are within normal limits. No free fluid or evidence of bowel obstruction. The retrocecal appendix is normal and gas-filled. Bone windows are normal. Impression: No acute disease process seen in the abdomen or pelvis. There is a preliminary report by [employer]. .
== END 2017-04-19 22:15 | disposition home or self-care (01) ==
LOC: ED 18:52
DX: R10.31 Right lower quadrant pain (principal); R10.32 Left lower quadrant pain; R10.33 Periumbilical pain; R11.0 Nausea
CPT/HCPCS: 74177; 80053; 81001; 84703; 85025; 96361; 96374; 96375; 99283; J1885; J2405; J7030; J7050; Q9967